=== PATIENT | male | born 1985 | race Two or more races ===

== ENCOUNTER 2019-05-15 18:08 | Emergency (ER) | payer MEDICARE, OTHER ==
[~2019-05-15] VITALS: Ht 162.6 cm; Wt 71.2 kg
--- NOTE | 2019-05-15 18:39 | NUR ---
"[facility] SENT HERE FROM [facility] FOR SHOWING AGGRESSION AND MOOD SWINGS PER FACILITY" PT CALM AND COOPERATIVE, PT ON MONITOR, VSS, NAD NOTED, PENDING MD ASH
[2019-05-15] MEDS ORDERED: TRAZ-214 PO (18:58)
[2019-05-15] MEDS ORDERED: DIVA-76 PO (18:58)
[2019-05-15] MEDS ORDERED: BUPR300T54 PO (18:58)
[2019-05-15] MEDS ORDERED: DOCU-141 PO (18:58)
[2019-05-15] MEDS ORDERED: MAGN400O6 PO (18:58)
[2019-05-15] MEDS ORDERED: ACET-2605 PO (18:58)
[2019-05-15] MEDS ORDERED: IBUP-2269 PO (18:58)
[2019-05-15] MEDS ORDERED: NA P133E RC (18:58)
[2019-05-15] MEDS ORDERED: BISA5TAB10 PO (18:58)
[2019-05-15] MEDS ORDERED: SENN-168 PO (18:58)
--- NOTE | 2019-05-15 19:12 | NUR ---
Gosia panda in EDM - 05/15/19 at 2004 by MERRILL PT. VERBALIZED UNDERSTANDING OF AFTERCARE INSTRUCTIONS.Patient discharged to home in stable condition with parents. Written and verbal after care instructions given. Patient verbalizes understanding of instruction.
[2019-05-15 19:23] LABS: BASOPHILS % (AUTO) 0.4 % (0.0-2.0); EOSINOPHILS % (AUTO) 0.8 % (0.0-6.0); HEMATOCRIT 42 % (39-51); HEMOGLOBIN 14.3 g/dL (13.5-17.5); LYMPHOCYTES # (AUTO) 2.5 /CMM (0.8-4.8); LYMPHOCYTES % (AUTO) 31.6 % (20.0-44.0); MEAN CORPUSCULAR HGB CONC 34 g/dl (31.0-36.0); MEAN CORPUSCULAR VOLUME 87 fL (80-96); MONOCYTES # (AUTO) 0.6 /CMM (0.1-1.30); MONOCYTES % (AUTO) 6.9 % (2.0-12.0); NEUTROPHILS # (AUTO) 4.8 /CMM (1.8-8.9); NEUTROPHILS % (AUTO) 60.3 % (43.0-81.0); PLATELET COUNT (AUTO) 273 /CMM (150-450); RED BLOOD CELL COUNT(AUTO) 4.88 MIL/uL (4.5-6.0)
[2019-05-15] MEDS ORDERED: OLANZAPINE 5 MG TABLET PO ONE (19:30)
[2019-05-15 19:34] LABS: CALCIUM, SERUM 8.6 mg/dL (8.5-10.1); CARBON DIOXIDE 27 mmol/L (21-32); CHLORIDE 98 mmol/L (98-107); CREATININE 0.8 mg/dL (0.6-1.3); GLUCOSE 88 mg/dL (74-106); POTASSIUM 4.4 mmol/L (3.5-5.1); SODIUM SERUM 134 mmol/L (136-145); UREA NITROGEN, BLOOD 10 mg/dL (7-18)
[2019-05-15 19:39] LABS: ALANINE AMINOTRANSFERASE 12 U/L (12-78); ALBUMIN 3.7 g/dL (3.4-5.0); ALCOHOL, BLOOD < 3 mg/dL (0-0); ALKALINE PHOSPHATASE 128 U/L (46-116); ASPARTATE AMINOTRANSFERASE 7 U/L (15-37); BILIRUBIN,DIRECT 0.1 mg/dL (0.0-0.2); BILIRUBIN,TOTAL 0.2 mg/dL (0.2-1.0); TOTAL PROTEIN, SERUM 7.8 g/dL (6.4-8.2)
[2019-05-15 19:43] LABS: ACETAMINOPHEN 0 ug/ml (10-30); SALICYLATE 1.7 mg/dL (2.8-20.0)
[2019-05-15] MEDS ORDERED: OLANZAPINE 5 MG TABLET ONE (19:54)
[2019-05-15 21:41] LABS: APPEARANCE,URINE Clear (CLEAR); BILIRUBIN,URINE Negative (NEGATIVE); BLOOD, URINE Negative Ery/uL (NEGATIVE); COLOR,URINE Yellow (YELLOW); KETONES,URINE Negative (NEGATIVE); LEUKOCYTE ESTERASE ,URINE Negative (NEGATIVE); NITRITE, URINE Negative (NEGATIVE); PROTEIN,URINE Negative (NEGATIVE); UGLUCOSE Negative (NEGATIVE); UROBILINOGEN,URINE 0.2 EU/dL (0.2)
--- NOTE | 2019-05-15 21:45 | NUR ---
urine collected and sent to lab
--- NOTE | 2019-05-15 22:12 | NUR ---
CALLED [employer] AND LEFT A MESSAGE
--- NOTE | 2019-05-15 22:40 | NUR ---
SPOKE TO [employer]. WILL ARRIVE IN 60 MIN
--- NOTE | 2019-05-16 01:24 | NUR ---
AMBULANCE ETA 0500 AM [id number]
[2019-05-16 05:50] VITALS: BP 114/77
== END 2019-05-16 05:50 | disposition home or self-care (01) ==
LOC: ER 18:10
DX: F91.8 Other conduct disorders (principal); F25.9 Schizoaffective disorder, unspecified; F32.9 Major depressive disorder, single episode, unspecified
CPT/HCPCS: 36415; 80048; 80076; 80305; 80307; 80329; 81001; 85025; 99284; G0480; J7040; 81000-TC

== ENCOUNTER 2019-11-14 00:16 | Emergency (ER) | payer MEDICARE, OTHER ==
[~2019-11-14] VITALS: Ht 177.8 cm; Wt 79.4 kg
[~2019-11-14 00:16] MED LIST: ACET-2605 PO; BISA5TAB10 PO; BUPR-319 PO; DIVA-76 PO; DOCU-141 PO; IBUP-2715 PO; MAGN400O6 PO; NA P133E RC; SENN-168 PO; TRAZ-257 PO
--- NOTE | 2019-11-14 00:16 | NUR ---
BIB EMS FROM STREET C/O ETOH. DENIES DRUG USE, PT AROUSABLE, -SOB, VSS NAD NOTED, PENDING MD ASH
--- NOTE | 2019-11-14 00:30 | NUR ---
PT TO CT
--- NOTE | 2019-11-14 00:42 | NUR ---
BACK FROM CT
--- NOTE | 2019-11-14 04:21 | NUR ---
PT ON CONSTANT OBSERVATION W SITTER AT BEDSIDE. NO ACUTE DISTRESS NOTED. VSS AT THIS TIME.
--- NOTE | 2019-11-14 05:42 | NUR ---
Patient given written and verbal discharge instructions. Patient verbalizes understanding of instructions. Patient is ambulatory with steady gait. Refuses offer of senior care placement. Patient given list of available shelters in surrounding area.
[2019-11-14 05:44] VITALS: BP 118/84
== END 2019-11-14 05:45 | disposition home or self-care (01) ==
LOC: ER 00:20
DX: F10.129 Alcohol abuse with intoxication, unspecified (principal); F32.9 Major depressive disorder, single episode, unspecified; F20.9 Schizophrenia, unspecified; Z79.899 Other long term (current) drug therapy; Y90.9 Presence of alcohol in blood, level not specified; R40.4 Transient alteration of awareness; M54.2 Cervicalgia
CPT/HCPCS: 70450-TC; 72125-TC